=== PATIENT | male | born 1960 | race Two or more races ===

== ENCOUNTER 2018-08-17 21:45 | Emergency (ER) | payer OTHER, MEDICARE ==
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
[2018-08-17] MEDS ORDERED: fentaNYL 100 MCG/2 ML SDV IM ONE (23:00)
[2018-08-17] MEDS ORDERED: ceFAZolin 1 GM Vial IM ONE (23:00)
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
== END 2018-08-17 23:38 | disposition home or self-care (01) ==
LOC: JP.ED 21:45
DX: S52.202B Unspecified fracture of shaft of left ulna, initial encounter for open fracture type I or II (principal); F17.210 Nicotine dependence, cigarettes, uncomplicated; W22.8XXA Striking against or struck by other objects, initial encounter
CPT/HCPCS: 29105; 73090; 96372; 99283; J0690; J3010